=== PATIENT | female | born 1980 | race African-American/Black ===

== ENCOUNTER 2018-11-14 17:20 | Inpatient (IN) | payer SELFPAY ==
[2018-11-14] MEDS: ELECTROLYTE-148 SOLN 1,000 ML IV SCH (18:00)
[2018-11-14 18:05] VITALS: BMI 24.8
[2018-11-14 18:27] LABS: BASO % 0.1 % (0-2.0); EOS % 1.7 % (0-4.5); HEMATOCRIT 34.1 % (32.4-45.2); HEMOGLOBIN 11.3 GM/dL (10.7-15.3); LYMPH % 23.3 % (8-40); MCHC 33.2 g/dl (32.0-36.0); MEAN CELL VOLUME 96.4 fl (80-96); MONO % 7.8 % (3.8-10.2); NEUT % 67.1 % (42.8-82.8); PLATELET COUNT 119 K/MM3 (134-434); RBC 3.54 M/mm3 (3.60-5.2); RDW 13.8 % (11.6-15.6); WHITE BLOOD COUNT 6.4 K/mm3 (4.0-10.0)
[2018-11-14 18:34] LABS: BLOOD UREA NITROGEN 16.1 mg/dL (7-18); CALCIUM 8.8 mg/dL (8.5-10.1); CREATININE 0.7 mg/dL (0.55-1.3); POTASSIUM 4.1 mmol/L (3.5-5.1)
[2018-11-14] MEDS: OXYTOCIN 30 UNITS in 0.9% NS 30 UNIT/500 ML INFUS.BAG IVPB SCH (18:38)
--- NOTE | 2018-11-14 18:38 | HP ---
Past Medical History - Admission Chief Complaint: active labor History of Present Illness: none History Source: Patient Limitations to Obtaining History: No Limitations - Past Medical History RECEIVER DISPATCHER: No: Alzheimer's, CVA, Dementia, Migraine, Multiple Sclerosis, Peripheral Neuropathy, Parkinson's, Seizure, Syncope, TIA, Vertigo, Other Cardiovascular: No: AFIB, Aneurysm, Aortic Insufficiency, Aortic Stenosis, CAD, CHF, Deep Vein Thrombosis, HTN, Hyperlipdemia, [place], Mitral Insufficiency, Mitral Stenosis, Murmur, Pulmonary Hypertension, Other Pulmonary: No: Asthma, Bronchitis, Cancer, COPD, O2 Dependent, Pneumonia, Previously Intubated, Pulmonary Embolus, Pulmonary Fibrosis, Sleep Apnea, Other Gastrointestinal: No: Ascites, Cancer, Constipation, Crohn's Disease, Diverticulitis, Diverticulosis, Esophageal Varices, Gastritis, GERD, GI Bleed, Hemorrhoids, Hiatal Hernia, Inflamatory Bowel Disease, Irritable Bowel Disease, Pancreatitis, Peptic Ulcer Disease, Ulcerative Colitis, Other Hepatobiliary: No: Cirrhosis, Cholelithiasis, Cholecystitis, Choledocholithiasis , Hepatitis A, Hepatitis B, Hepatitis C, Other Renal/: No: Renal Failure, Renal Inusuff, BPH, Cancer, Hematuria, Hemodialysis , Neurogenic Bladder, Renal Calculi, UTI, Other Reproductive: No: Ectopic , Endometriosis, Fibroids, PID, Polycystic Ovary Syndrome, Postmenopausal, Other ...: 4 ...Para: 3 ...Term: 3 ...: 0 ...Spon : 0 ...Induced : 0 ...Multiple Gestation: 0 ...EDC by Polina: 11/15/18 Heme/Onc: No: Anemia, B12 Deficiency, Bleeding Disorder, Cancer, Current Chemotherapy, Current Radiation Therapy, Hemochromatosis, Hypercoaguable State, Myeloproliferative Synd, Sickle Cell Disease, Sickle Cell Trait, Thrombocytopenia, Other Infectious Disease: No: AIDS, C-Diff, Herpes Zoster, HIV, MRSA, STD's, Tuberculosis, VREF, Other Psych: No: Addictions, Anxiety, Bipolar, Depression, Panic, Psychosis, Schizophrenia, Other Musculoskeletal: No: Bursitis, Chronic low back pain, Hemiparesis, Hemiplegia, Osteoarthritis, Paraplegia, Other Rheumatology: No: Fibromyalgia, Gout, Lupus, Rheumatoid Arthritis, Sarcoidosis, Vasculitis, Other ENT: No: Allergic Rhinitis, Sinusitis, Other Endocrine: No: Pride's Disease, John's Disease, Diabetes Insipidus, Diabetes Mellitus, Hyperparathyroidism, Hyperthyroidism, Hypothyroidism, Osteopenia, SIADH, Other Dermatology: No: Basal Cell, Cellulitis, Eczema, Melanoma, Psoriasis, Squamous Cell, Other - Past Surgical History Past Surgical History: No: None, AAA Repair, AICD, Amputation, Appendectomy, Arthrosocopy, AV Fistula/Graft, Bariatric Surgery, Breast Biopsy, Bypass, CABG, Carotid Endarterectomy, Cataract Removal, Cholecystectomy, Colectomy, Colonoscopy, Colostomy, Craniotomy, , Cystectomy, Hernia Repair, Hysterectomy, Ileal Conduit, Ileosotomy, Joint Replacement, Kidney Transplant, Laminectomy, Liver Transplant, Mastectomy, Nephrectomy, Oopherectomy, Orchiectomy, Permanent Pacemaker, Prostatectomy, Splenectomy, Stent, Thoracotomy , TURP, Tonsillectomy, Tubal Ligation, Upper Endoscopy, Valve Replacement, Vasectomy, Vein Stripping/Ligation Hx Myomectomy: No Hx Transabdominal Cerclage: No - Advance Directives Advance Directives: Yes: Living Will - Smoking History Smoking history: Never smoked Have you smoked in the past 12 months: No - Alcohol/Substance Use Hx Alcohol Use: No History of Substance Use: reports: None - Social History Usual Living Arrangement: Yes: With Spouse ADL: Independent History of Recent Travel: No Home Medications - Allergies Allergies/Adverse Reactions: Allergies Allergy/AdvReac Type Severity Reaction Status Date / Time clindamycin Allergy Severe Difficulty Verified 11/14/18 17:55 Breathing Penicillins Allergy Severe Hives Verified 11/14/18 17:54 - Home Medications Home Medications: Ambulatory Orders Vitamins - 1 tab PO DAILY 11/14/18 Family Disease History - Family Disease History Family History: Denies Review of Systems - Review of Systems Constitutional: reports: No Symptoms Eyes: reports: No Symptoms HENT: reports: No Symptoms Neck: reports: No Symptoms Cardiovascular: reports: No Symptoms Respiratory: reports: No Symptoms Gastrointestinal: reports: No Symptoms Genitourinary: reports: No Symptoms Breasts: reports: No Symptoms Reported Musculoskeletal: reports: No Symptoms Integumentary: reports: No Symptoms Neurological: reports: No Symptoms Endocrine: reports: No Symptoms Hematology/Lymphatic: reports: No Symptoms Psychiatric: reports: No Symptoms Pain Intensity: 5 Physical Exam - Maternity Vital Signs: Vital Signs Temperature 97.5 F L 11/14/18 17:45 Pulse Rate 77 11/14/18 18:15 Respiratory Rate 18 11/14/18 18:15 Blood Pressure 100/64 11/14/18 18:15 O2 Sat by Pulse Oximetry (%) Constitutional: Yes: Well Nourished, No Distress, Calm Eyes: Yes: WNL, Conjunctiva Clear, EOM Intact HENT: Yes: WNL, Atraumatic, Normocephalic Neck: Yes: WNL, Supple, Trachea Midline Cardiovascular: Yes: WNL, Regular Rate and Rhythm Lungs: Clear to auscultation Breast(s): Yes: WNL - Abdominal Exam/OB Fundal Height: 38 Number of Fetuses: Single Presentation: Vertex Contractions: Yes Regularity: Irregular Intensity: Mild/Mod Monitor Mode: External Heart Rate Location: [facility] Category: I Accelerations: Uniform Decelerations: None - Vaginal Exam/OB Vaginal Bleediing: No Speculum Exam: No Dilatation (cm): 5 Effacement (%): 60 Amniotic Membrane Status: Intact Presentation: Vertex/Position Station: -1 - Physical Exam Musculoskeletal: Yes: WNL Extremities: Yes: WNL Edema: Yes Edema: LUE: 1+, RUE: 1+, LLE: 1+, RLE: 1+ Integumentary: Yes: WNL Deep Tendon Reflex Grade: Normal +2 ...Motor Strength: WNL Psychiatric: Yes: WNL, Alert, Oriented - Labs Lab Results: CBC, BMP 11/14/18 17:55 Assessment/Plan for laboring, will augment
[2018-11-14 18:40] LABS: INR 0.93 (0.83-1.09)
[2018-11-14 18:43] LABS: ACTIVATED PTT 28.8 SECONDS (25.2-36.5)
[2018-11-14] MEDS ORDERED: FENTANYL/BUPIVACAINE/NS/PF - PCEA - 50 ML DISP.SYRIN EP ONE (21:18)
[2018-11-14] MEDS ORDERED: NALOXONE HCL 0.4 MG/ML VIAL IVPUSH PRN (22:25)
[2018-11-14] MEDS ORDERED: FENTANYL/BUPIVACAINE/NS/PF - PCEA - 50 ML DISP.SYRIN EP SCH (22:30)
[2018-11-15] MEDS ORDERED: OXYTOCIN 20 UNITS in 0.9% NS 20 UNIT/1,000 ML INFUS.BAG IV ONE (00:48)
[2018-11-15] MEDS ORDERED: WITCH HAZEL 50% (TUCKS) 40 PAD/JAR PAD TP PRN (01:05)
[2018-11-15] MEDS ORDERED: BENZOCAINE 20% 57 GM BOTTLE TP PRN (01:05)
[2018-11-15] MEDS ORDERED: METHYLERGONOVINE MALEATE 0.2 MG/1 ML AMP IM PRN (01:05)
[2018-11-15] MEDS ORDERED: oxyCODONE HCL 5 MG TABLET PO PRN (01:05)
[2018-11-15] MEDS ORDERED: BISACODYL 10 MG SUPP.RECT RC PRN (01:05)
[2018-11-15] MEDS ORDERED: BENZOCAINE 28 GM HEMORRHOIDAL OINTMENT TP PRN (01:05)
--- NOTE | 2018-11-15 01:11 | PN ---
Progress Note (short form) - Note Progress Note: 8 pm 6 cm , -1, 70 % for epidural
--- NOTE | 2018-11-15 01:12 | PN ---
Progress Note (short form) - Note Progress Note: 0045 am 10 cm, pushing soon
[2018-11-15] MEDS ORDERED: OXYTOCIN 20 UNITS in 0.9% NS 20 UNIT/1,000 ML INFUS.BAG IV SCH (01:15)
--- NOTE | 2018-11-15 01:15 | PN ---
Delivery - Delivery Type of Anesthesia: Epidural Episiotomy/Laceration: None EBL (cc): 150 Delivery, Single - Stages of Labor Date 1st Stage Initiatied: 11/14/18 Time 1st Stage Initiated: 11:00 Date 2nd Stage Initiated: 11/15/18 Time 2nd Stage Initiated: 00:45 Date of Delivery: 11/15/18 Time of Delivery: 00:51 Date Placenta Delivered: 11/15/18 Time Placenta Delivered: 01:00 Placenta: Yes: Spontaneous - Condition of Infant Sales Service Representative/Explosives Operator Present: No Infant Gender: Female Position: Right, OA Total Hours ROM (Hrs/Mins): 6hr 21 min - 1 Minute Total Score: 9 5 Minutes Total Score: 9 - Feeding Plan Initial Plan: Elected not to breastfeed exclusively throughout hospitalization
[2018-11-15] MEDS: ACETAMINOPHEN 325 MG TABLET (FP) PO PRN ×2 (09:10→15:23)
[2018-11-15] MEDS: IBUPROFEN 600 MG TABLET (FP) PO PRN ×2 (09:10→15:22)
[2018-11-15] MEDS: ELECTROLYTE-148 SOLN 1,000 ML IV SCH (19:36)
[2018-11-15] MEDS: OXYTOCIN 30 UNITS in 0.9% NS 30 UNIT/500 ML INFUS.BAG IVPB SCH (19:36)
[2018-11-15] MEDS: DEXTROSE 5%-LACTATED RINGERS 1,000 ML IV SCH (19:36)
[2018-11-16 07:46] LABS: BASO % 0.3 % (0-2.0); EOS % 2.9 % (0-4.5); HEMOGLOBIN 9.5 GM/dL (10.7-15.3); LYMPH % 36.6 % (8-40); MCH 31.8 pg (25.7-33.7); MCHC 32.7 g/dl (32.0-36.0); MEAN PLT VOLUME 11.9 fl (7.5-11.1); MONO % 6.1 % (3.8-10.2); NEUT % 54.1 % (42.8-82.8); PLATELET COUNT 97 K/MM3 (134-434); RBC 2.99 M/mm3 (3.60-5.2); WHITE BLOOD COUNT 7.6 K/mm3 (4.0-10.0)
--- NOTE | 2018-11-16 11:54 | PN ---
Post Progress Note Post Day: 1 Type of Delivery: Vital Signs: Vital Signs Temperature 98.2 F 11/16/18 09:00 Pulse Rate 81 11/16/18 09:00 Respiratory Rate 18 11/16/18 09:00 Blood Pressure 109/67 11/16/18 09:00 O2 Sat by Pulse Oximetry (%) 100 11/15/18 00:37 Breast Exam: Yes: Soft Uterus: Yes: Fundus Firm, Fundus below umbilicus Abdomen/GI: Yes: Abdomen soft, Passing flatus, Tolerating PO Lochia: Yes: Serosa Lochia, amount: Small Extremities: Yes: Calves non-tender Perineum: Yes: Intact Activity: Ambulating - Labs Labs: CBC WBC 7.6 K/mm3 (4.0-10.0) 11/16/18 06:00 RBC 2.99 M/mm3 (3.60-5.2) L 11/16/18 06:00 Hgb 9.5 GM/dL (10.7-15.3) L 11/16/18 06:00 Hct 29.0 % (32.4-45.2) L 11/16/18 06:00 MCV 97.0 fl (80-96) H 11/16/18 06:00 MCH 31.8 pg (25.7-33.7) 11/16/18 06:00 MCHC 32.7 g/dl (32.0-36.0) 11/16/18 06:00 RDW 14.0 % (11.6-15.6) 11/16/18 06:00 Plt Count 97 K/MM3 (134-434) L 11/16/18 06:00 MPV 11.9 fl (7.5-11.1) H 11/16/18 06:00 Absolute Neuts (auto) 4.1 K/mm3 (1.5-8.0) 11/16/18 06:00 Neutrophils % 54.1 % (42.8-82.8) 11/16/18 06:00 Lymphocytes % 36.6 % (8-40) D 11/16/18 06:00 Monocytes % 6.1 % (3.8-10.2) 11/16/18 06:00 Eosinophils % 2.9 % (0-4.5) 11/16/18 06:00 Basophils % 0.3 % (0-2.0) 11/16/18 06:00 Nucleated RBC % 0 % (0-0) 11/16/18 06:00 Assessment/Plan dc pt home tomorrow, doing well
--- NOTE | 2018-11-16 11:56 | DS ---
Physical Exam-PROFESSOR OF PATHOLOGY Vital Signs: Vital Signs Temperature 98.2 F 11/16/18 09:00 Pulse Rate 81 11/16/18 09:00 Respiratory Rate 18 11/16/18 09:00 Blood Pressure 109/67 11/16/18 09:00 O2 Sat by Pulse Oximetry (%) 100 11/15/18 00:37 Constitutional: Yes: Well Nourished, No Distress, Calm Eyes: Yes: WNL, Conjunctiva Clear, EOM Intact HENT: Yes: WNL, Atraumatic, Normocephalic Neck: Yes: WNL, Supple, Trachea Midline Cardiovascular: Yes: WNL, Regular Rate and Rhythm Respiratory: Yes: WNL, Regular, CTA Bilaterally Gastrointestinal: Yes: WNL, Normal Bowel Sounds, Soft ...Rectal Exam: Yes: WNL Renal/: Yes: WNL Pelvis: Yes: WNL External Genitalia: Yes: Normal Internal Exam Deferred: No Vaginal Exam: Yes: Normal Cervix: Yes: Normal Uterus: Yes: Normal Adnexa: Normal: Bilateral ....Post : Yes: Uterus firm, Uterus non-tender Breast(s): Yes: WNL Musculoskeletal: Yes: WNL Extremities: Yes: WNL Edema: No Integumentary: Yes: WNL Wound/Incision: Yes: Clean/Dry, Well Approximated Neurological: Yes: WNL, Alert, Oriented ...Motor Strength: WNL Psychiatric: Yes: WNL, Alert, Oriented Labs: CBC, BMP 11/16/18 06:00 11/14/18 17:55 Delivery - Delivery Type of Anesthesia: Epidural Episiotomy/Laceration: None EBL (cc): 300 Delivery, Single - Stages of Labor Date 1st Stage Initiatied: 11/14/18 Time 1st Stage Initiated: 11:00 Date 2nd Stage Initiated: 11/15/18 Time 2nd Stage Initiated: 00:45 Date of Delivery: 11/15/18 Time of Delivery: 00:51 Time Placenta Delivered: 01:00 Placenta: Yes: Spontaneous - Condition of Infant Bumper And Painter/First Aid Trainer Present: No Gender: Female Weight: 3.09 kg Position: Left, OA Total Hours ROM (Hrs/Mins): [id number] - 1 Minute Total Score: 9 5 Minutes Total Score: 9 - Feeding Plan Initial Plan: Elected not to breastfeed exclusively throughout hospitalization Discharge Summary Reason For Visit: ADMIT Condition: Stable - Instructions Diet, Activity, Other Instructions: regular Disposition: HOME - Home Medications Comprehensive Discharge Medication List: Ambulatory Orders Vitamins - 1 tab PO DAILY 11/14/18
[2018-11-16] MEDS: ACETAMINOPHEN 325 MG TABLET (FP) PO PRN (20:36)
[2018-11-16] MEDS: IBUPROFEN 600 MG TABLET (FP) PO PRN (20:36)
[2018-11-16] MEDS ORDERED: SENNOSIDES/DOCUSATE COMBO (SENNA PLUS) TABLET (UD) PO PRN (22:00)
[2018-11-17 09:21] VITALS: BP 118/79; PULSE 72
[2018-11-17 09:42] VITALS: TEMP 98.1
== END 2018-11-17 12:35 | disposition home or self-care (01) | DRG 560 ==
LOC: JLDR 17:20 → J3W 11-15 05:08
PROVIDERS: ADMIT Obstetrics & Gynecology; ATTEND Obstetrics & Gynecology
PROC: 10E0XZZ Delivery of Products of Conception, External Approach (ICD-10-PCS; principal; 2018-11-15)
DX: O69.81X0 Labor and delivery complicated by cord around neck, without compression, not applicable or unspecified (principal); Z3A.40 40 weeks gestation of pregnancy; Z37.0 Single live birth; Z88.0 Allergy status to penicillin
CPT/HCPCS: 36415; 59409; 80048; 85025; 85610; 85730; 86593; 86850; 86900; 86901